=== PATIENT | male | born 1960 | race Caucasian/White ===

== ENCOUNTER 2021-01-16 14:29 | Inpatient (IN) | payer MEDICAID, OTHER ==
[~2021-01-16] VITALS: Ht 177.8 cm; Wt 80.9 kg
[~2021-01-16 14:29] MED LIST: IBUP-1572 PO; LANS30CA37 PO; NORCO10T PO
[2021-01-16 15:16] LABS: EOSINOPHILS # (AUTO) 0.4 X10'3 (0-0.9); LYMPHOCYTES # (AUTO) 2.3 X10'3 (1.1-4.8); MEAN CORPUSCULAR HEMOGLOBIN 27.9 PG (27.0-31.0); MONOCYTES # (AUTO) 0.5 X10'3 (0-0.9)
[2021-01-16 15:17] LABS: BASOPHILS # (AUTO) 0.1 X10'3 (0-0.2); BASOPHILS % (AUTO) 1.6 % (0-1); EOSINOPHILS % (AUTO) 6.1 % (0-6); HEMATOCRIT 46.8 % (42.0-52.0); HEMOGLOBIN 15.5 g/dl (14.0-17.9); LYMPHOCYTES % (AUTO) 38.7 % (21-51); MEAN CORPUSCULAR VOLUME 84.3 FL (78-98); MEAN PLATELET VOLUME 8.2 FL (7.4-10.4); MONOCYTES % (AUTO) 8.6 % (2-12); NEUTROPHILS # (AUTO) 2.6 X10'3 (1.8-7.7); PLATELET COUNT 236 X10'3 (140-440); RED BLOOD COUNT 5.54 X10'6 (4.70-6.10); RED CELL DISTRIBUTION WIDTH 14.1 % (11.5-14.5); WHITE BLOOD COUNT 5.8 X10'3 (4.5-11.0)
[2021-01-16 15:40] LABS: ALANINE AMINOTRANSFERASE 29 U/L (12-78); ALBUMIN 3.9 G/DL (3.4-5.0); ALBUMIN/GLOBULIN RATIO 0.9 (1.1-1.5); ALKALINE PHOSPHATASE 82 IU/L (46-116); ANION GAP 11 (8-16); ASPARTATE AMINO TRANSFERASE 25 U/L (10-37); BILIRUBIN,TOTAL 0.5 MG/DL (0.1-1.0); BLOOD UREA NITROGEN 12 MG/DL (7-18); BUN/CREATININE RATIO 10.6 (5.4-32.0); CALCIUM 8.5 MG/DL (8.5-10.1); CHLORIDE 102 MMOL/L (99-107); CREATININE 1.13 MG/DL (0.60-1.10); GLUCOSE 242 MG/DL (70-104); MAGNESIUM 1.8 MG/DL (1.5-2.4); POTASSIUM 3.9 MMOL/L (3.5-5.1); SODIUM 137 MMOL/L (135-145); TOTAL CARBON DIOXIDE 23.7 MMOL/L (24-32); TOTAL PROTEIN 8.2 G/DL (6.4-8.2); eGFR 66 ML/MIN
[2021-01-16] MEDS ORDERED: aspirin 81mg tab.chew PO ONE (16:05)
[2021-01-16] MEDS ORDERED: normal saline 1000ML IV soln IVB ONE (16:35)
[2021-01-16] MEDS ORDERED: mag hydrox/Alum hydrox/simeth 30ml oral suspension PO PRN (16:55)
[2021-01-16] MEDS ORDERED: heparin 10,000 units/1 ML INJ IV PRN (16:55)
[2021-01-16] MEDS ORDERED: morphine 2 MG/ML inj. syringe IV PRN ×2 (16:55)
[2021-01-16] MEDS ORDERED: magnesium hydroxide 30ml (MOM) UD suspension PO PRN (16:55)
[2021-01-16] MEDS ORDERED: heparin 25,000 UNIT/250ml bag 250 ML IV SCH (16:55)
[2021-01-16] MEDS ORDERED: ondansetron/PF 4mg/2ml inj IV PRN (16:55)
[2021-01-16] MEDS ORDERED: heparin 10,000 units/1 ML INJ IV ONE (16:55)
[2021-01-16 16:56] LABS: D-DIMER 0.42 MG/L FEU (0-0.50)
[2021-01-16 17:45] LABS: PARTIAL THROMBOPLASTIN TIME 25 SECONDS (22-32)
[2021-01-16] MEDS: normal saline 1000ml 1,000 ML IV SCH (17:45)
[2021-01-16 20:28] LABS: URINE AMPHETAMINE SCREEN NEGATIVE (Neg); URINE BARBITUATE SCREEN NEGATIVE (Neg); URINE BENZODIAZEPINES SCREEN NEGATIVE (Neg); URINE CANNABINOID SCREEN NEGATIVE (Neg); URINE COCAINE SCREEN NEGATIVE (Neg); URINE METHADONE SCREEN NEGATIVE (Neg); URINE OPIATE SCREEN NEGATIVE (Neg); URINE PHENCYCLIDINE SCREEN NEGATIVE (Neg)
[2021-01-16] MEDS: carVEDilol 3.125mg tablet PO SCH (20:40)
--- NOTE | 2021-01-16 21:23 | NUR ---
DR. MANJARREZ CALLING ME WITH UPDATE. HE SPOKE WITH THE PT EARLIER AND THE PT IS AGREEABLE TO CARDIAC CATH. VERBAL ORDERS: FILL OUT THE CONSENT FOR CATH WITH POSSIBLE STENT (PT WILL BE ADD ON TOMORROW LIIKELY IN AFTERNOON); NPO AFTER 6 AM 9PT MAY EAT BREAKFAST BEFORE THIS TIME); PLACE PIV 18 G IN RAC. PT UPDATED OF THESE ORDERS.
--- NOTE | 2021-01-16 23:17 | NUR ---
PLACED ON HOSPITAL BED. AWAITING IPA. PIV NOW PLACED IN RAC, 18G.
[2021-01-17] VITALS (12 sets, daily range): BP systolic 84–125; BP diastolic 51–81
[2021-01-17] MEDS: acetaminophen 325mg tablet PO PRN (02:17)
--- NOTE | 2021-01-17 03:25 | NUR ---
6 HR TROP DRAWN, 6 HR EKG COMPLETED
[2021-01-17] MEDS: normal saline 1000ml 1,000 ML IV SCH ×3 (03:29→23:46)
[2021-01-17 04:28] LABS: ALBUMIN 3.4 G/DL (3.4-5.0); ANION GAP 14 (8-16); BLOOD UREA NITROGEN 10 MG/DL (7-18); BUN/CREATININE RATIO 11.4 (5.4-32.0); CALCIUM 8.2 MG/DL (8.5-10.1); CHLORIDE 104 MMOL/L (99-107); CREATININE 0.88 MG/DL (0.60-1.10); GLUCOSE 133 MG/DL (70-104); POTASSIUM 3.5 MMOL/L (3.5-5.1); SODIUM 140 MMOL/L (135-145); TOTAL CARBON DIOXIDE 22.3 MMOL/L (24-32); eGFR 88 ML/MIN
[2021-01-17] MEDS: aspirin 325mg tablet, delayed-release (Ecotrin) PO SCH (08:00)
[2021-01-17] MEDS ORDERED: atorvastatin 20mg tablet PO SCH (08:00)
[2021-01-17] MEDS: carVEDilol 3.125mg tablet PO SCH ×2 (08:00→19:38)
[2021-01-17 08:52] LABS: BASOPHILS # (AUTO) 0.1 X10'3 (0-0.2); BASOPHILS % (AUTO) 1.4 % (0-1); EOSINOPHILS # (AUTO) 0.4 X10'3 (0-0.9); EOSINOPHILS % (AUTO) 5.9 % (0-6); HEMATOCRIT 42.6 % (42.0-52.0); HEMOGLOBIN 14.2 g/dl (14.0-17.9); LYMPHOCYTES # (AUTO) 2.7 X10'3 (1.1-4.8); LYMPHOCYTES % (AUTO) 39.7 % (21-51); MEAN CORPUSCULAR HEMOGLOBIN 28.2 PG (27.0-31.0); MEAN CORPUSCULAR HGB CONC 33.3 g/dL (33.0-36.5); MEAN CORPUSCULAR VOLUME 84.7 FL (78-98); MEAN PLATELET VOLUME 8.3 FL (7.4-10.4); MONOCYTES # (AUTO) 0.5 X10'3 (0-0.9); PLATELET COUNT 198 X10'3 (140-440); RED BLOOD COUNT 5.03 X10'6 (4.70-6.10); RED CELL DISTRIBUTION WIDTH 14.3 % (11.5-14.5); WHITE BLOOD COUNT 6.7 X10'3 (4.5-11.0)
[2021-01-17] MEDS ORDERED: nitroGLYCERIN-Tridil 50MG/D5W 250 ML IV ONE (10:35)
[2021-01-17] MEDS ORDERED: verapamil 2.5 mg/ml inj IV ONE (10:35)
[2021-01-17] MEDS ORDERED: fentaNYL/PF 50MCG/1 ML 2ML syringe ONE (10:36)
[2021-01-17] MEDS ORDERED: heparin 1,000unit/ml 10ml vial 10 ML ONE (10:36)
[2021-01-17] MEDS ORDERED: iohexol 350 MG/ML 50ML vial IV ONE (10:36)
[2021-01-17] MEDS ORDERED: midazolam 1 mg/ML 2ml injection ONE (10:36)
[2021-01-17] MEDS ORDERED: LIDOcaine 1% (10mg/ml)w/preservative injection 20ml MDV ONE (10:36)
[2021-01-17] MEDS ORDERED: iohexol 350MG/ML 100ml bottle IV ONE (10:36)
[2021-01-17 12:04] LABS: CHOL/HDL RATIO 7.1 (0.00-4.99); CHOLESTEROL 240 MG/DL (0-200); HDL CHOLESTEROL 34 MG/DL (35-60); LDL CHOLESTEROL 172 MG/DL (50-100); TRIGLYCERIDES 252 MG/DL (20-135)
[2021-01-17 13:42] LABS: ISTAT HGB ART 14.3 g/dl (14.0-18.0); ISTAT Hct ART 42 %PCV (42-52); ISTAT O2 SATURATION ARTERIAL 95 % (95-98); ISTAT SOURCE ART
--- NOTE | 2021-01-17 13:42 | NUR ---
Per microbiology lab technician - heart cath negative - radial approach - pending patient to room
--- NOTE | 2021-01-17 14:50 | NUR ---
FAXED NEW RX ORDER, ENTRESTO, TO [facility] IN [place] [place].
[2021-01-17] MEDS: sacubitril/valsartan 24mg-26mg tablet PO SCH ×2 (15:35→19:35)
--- NOTE | 2021-01-17 18:30 | NUR ---
Patient in room PCU 3026. I have received report from Maria R RIVAS and had the opportunity to ask questions and assume patient care.
--- NOTE | 2021-01-17 18:35 | NUR ---
Problems reprioritized. Patient report given, questions answered & plan of care reviewed with EVELYN CALVILLO.
--- NOTE | 2021-01-17 18:45 | NUR ---
Orientee documentation: I have reviewed and agree with all interventions, assessments performed and documented by EVELYN Heck.
--- NOTE | 2021-01-17 19:37 | NUR ---
bp 97/65 HR 104 spo2 94% 2l nc
[2021-01-18] MEDS ORDERED: acetaminophen 325mg tablet PO PRN (00:05)
[2021-01-18] MEDS: acetaminophen 325mg tablet PO PRN (00:23)
[2021-01-18 03:28] VITALS: BP 105/57
[2021-01-18 06:00] VITALS: BP 95/62
--- NOTE | 2021-01-18 06:00 | NUR ---
Patient in room PCU 3026. I have received report from Tara RIVAS and had the opportunity to ask questions and assume patient care.
--- NOTE | 2021-01-18 06:19 | NUR ---
Problems reprioritized. Patient report given, questions answered & plan of care reviewed with Silvio RIVAS.
[2021-01-18] MEDS ORDERED: atorvastatin 20mg tablet PO SCH (08:00)
[2021-01-18] MEDS ORDERED: lansoprazole 15mg solutab PO SCH (08:00)
[2021-01-18] MEDS: aspirin 325mg tablet, delayed-release (Ecotrin) PO SCH (08:00)
[2021-01-18] MEDS: sacubitril/valsartan 24mg-26mg tablet PO SCH (08:00)
[2021-01-18] MEDS ORDERED: spironolactone 25 MG tablet PO SCH (08:30)
[2021-01-18] MEDS ORDERED: aspirin 81mg tab.chew PO SCH (08:30)
[2021-01-18 08:34] LABS: BASOPHILS # (AUTO) 0.1 X10'3 (0-0.2); BASOPHILS % (AUTO) 1.7 % (0-1); EOSINOPHILS # (AUTO) 0.3 X10'3 (0-0.9); EOSINOPHILS % (AUTO) 5.9 % (0-6); HEMOGLOBIN 13.9 g/dl (14.0-17.9); LYMPHOCYTES # (AUTO) 2.1 X10'3 (1.1-4.8); LYMPHOCYTES % (AUTO) 38.5 % (21-51); MEAN CORPUSCULAR HEMOGLOBIN 27.6 PG (27.0-31.0); MEAN CORPUSCULAR HGB CONC 33.3 g/dL (33.0-36.5); MEAN CORPUSCULAR VOLUME 83.1 FL (78-98); MEAN PLATELET VOLUME 8.4 FL (7.4-10.4); MONOCYTES # (AUTO) 0.5 X10'3 (0-0.9); MONOCYTES % (AUTO) 10.2 % (2-12); NEUTROPHILS # (AUTO) 2.4 X10'3 (1.8-7.7); NEUTROPHILS % (AUTO) 43.7 % (42-75); PLATELET COUNT 184 X10'3 (140-440); RED BLOOD COUNT 5.05 X10'6 (4.70-6.10); RED CELL DISTRIBUTION WIDTH 14.5 % (11.5-14.5); WHITE BLOOD COUNT 5.4 X10'3 (4.5-11.0)
[2021-01-18] MEDS: normal saline 1000ml 1,000 ML IV SCH (08:55)
[2021-01-18 09:18] LABS: ALBUMIN 3.3 G/DL (3.4-5.0); ANION GAP 14 (8-16); BLOOD UREA NITROGEN 9 MG/DL (7-18); BUN/CREATININE RATIO 10.2 (5.4-32.0); CALCIUM 7.7 MG/DL (8.5-10.1); CHLORIDE 106 MMOL/L (99-107); CREATININE 0.88 MG/DL (0.60-1.10); GLUCOSE 125 MG/DL (70-104); POTASSIUM 3.4 MMOL/L (3.5-5.1); SODIUM 142 MMOL/L (135-145); TOTAL CARBON DIOXIDE 22.4 MMOL/L (24-32); eGFR 88 ML/MIN
[2021-01-18 09:45] VITALS: BP 89/60
[2021-01-18] MEDS ORDERED: pneumococcal 23-VAL P-sac vacc 25 mcg/0.5ml vial IMVAC ONE (10:00)
--- NOTE | 2021-01-18 10:00 | NUR ---
Spoke with Nirali Gayle [employer], concerning Pt's BP and AM BP meds. Instructed to give morning Coreg 3.125 and Aldactone 25mg and hold entresto. Will continue to check Pt's BP as needed.
[2021-01-18] MEDS: carVEDilol 3.125mg tablet PO SCH (10:07)
[2021-01-18] MEDS ORDERED: magnesium Cl slow-release 64mg tablet PO PRN (10:25)
[2021-01-18] MEDS ORDERED: magnesium 4gm in 100ml NS 100 ML IV PRN (10:25)
[2021-01-18] MEDS ORDERED: potassium Cl 20 mEq SR tablet PO PRN ×2 (10:25)
--- NOTE | 2021-01-18 10:26 | NUR ---
Pt ambulated 4 laps around nurses station on RA with no assistive devices. Pt did not complain of any SOB or pain.
--- NOTE | 2021-01-18 10:30 | NUR ---
Received Pt report from Theresa RIVAS in ED. Had opportunity to ask questions concerning Pt care and plan. Awaiting arrival of Pt to room 301. Addendum: 01/18/21 at 1110 by Silvio Payne RN wrong Pt.
[2021-01-18 11:00] VITALS: BP 90/65
--- NOTE | 2021-01-18 11:16 | NUR ---
PAGER ID: [phone] MESSAGE: Re: Flip ayala. Room: 3026A. DC order is in but discharge is not completely filled out. Pt being picked up at 1200. -[facility] #[id number] -Dr. Larsen paged concerning Pt's DC
[2021-01-18] MEDS ORDERED: ASPI81TA53 PO (11:31)
[2021-01-18] MEDS ORDERED: SPIR25TA PO (11:31)
[2021-01-18] MEDS ORDERED: COR3.125T PO (11:31)
[2021-01-18] MEDS ORDERED: ATOR20TA66 PO (11:31)
[2021-01-18] MEDS ORDERED: SACU1TAB PO (11:31)
--- NOTE | 2021-01-18 12:37 | NUR ---
Pt DC'd home with sister. Pt alert and oriented and vitals WNL upon DC. Per Dr. Larsen; Pt is stable for DC. IV removed, canula intact. tele-box removed and returned to tele-tech. DC paperwork printed out and gone over with Pt. Allowed Pt to ask questions concerning DC and then answered them. New prescriptions called into [facility] in [facility]. Pt stated that he will make a follow up appt with his PCP and Dr. Ramirez within 2 weeks time. Pt's belongings gathered and sent with Pt. Pt wheeled down to [employer] in wheel chair where Pt left in private vehicle with sister for home.
[2021-01-18] MEDS ORDERED: K and/or MAG REPLACEMENT MC SCH (20:00)
[2021-01-19] MEDS ORDERED: GLYB2.5T4 PO (11:38)
== END 2021-01-18 12:37 | disposition home or self-care (01) | DRG 190 ==
LOC: ER 14:29 → ED HOLD 16:54 → PCU 3S 01-17 09:28
PROVIDERS: ADMIT Family Medicine; ATTEND Family Medicine
PROC: 4A023N8 Measurement of Cardiac Sampling and Pressure, Bilateral, Percutaneous Approach (ICD-10-PCS; principal; 2021-01-17)
PROC: B2111ZZ Fluoroscopy of Multiple Coronary Arteries using Low Osmolar Contrast (ICD-10-PCS; 2021-01-17)
PROC: B2151ZZ Fluoroscopy of Left Heart using Low Osmolar Contrast (ICD-10-PCS; 2021-01-17)
PROC: B44FZZZ Ultrasonography of Right Lower Extremity Arteries (ICD-10-PCS; 2021-01-17)
PROC: 3E0234Z Introduction of Serum, Toxoid and Vaccine into Muscle, Percutaneous Approach (ICD-10-PCS; 2021-01-18)
DX: I21.4 Non-ST elevation (NSTEMI) myocardial infarction (principal); I50.23 Acute on chronic systolic (congestive) heart failure; E11.65 Type 2 diabetes mellitus with hyperglycemia; I42.9 Cardiomyopathy, unspecified; I11.0 Hypertensive heart disease with heart failure; I25.10 Atherosclerotic heart disease of native coronary artery without angina pectoris; K21.9 Gastro-esophageal reflux disease without esophagitis; Z79.899 Other long term (current) drug therapy; Z80.9 Family history of malignant neoplasm, unspecified; Z87.891 Personal history of nicotine dependence; Z93.3 Colostomy status; Z23 Encounter for immunization
CPT/HCPCS: 36415; 71045; 80048; 80053; 80061; 80305; 82803; 82948; 83036; 83735; 83880; 84484; 85014; 85025; 85379; 85610; 85730; 87081; 90732; 93005; 93306; 93460; 99152; 99153; 99285; A4620; A5120; A6258; C1751; C1769; C1894; G0378; J1644; J2001; J2250; J3010; J3490; J7030; Q9967

== ENCOUNTER 2024-02-19 15:22 | Emergency (ER) | payer MEDICAID ==
[~2024-02-19] VITALS: Ht 175.3 cm; Wt 81.8 kg
[~2024-02-19 15:22] MED LIST changes: +ASPI81TA53 PO; +ATOR20TA66 PO; +COR3.125T PO; +GLYB2.5T4 PO; -IBUP-1572 PO; -NORCO10T PO; +SACU1TAB PO; +SPIR25TA PO
[2024-02-19 16:29] VITALS: BP 143/82; PULSE 70; RESP 18; TEMP 98.7; O2SAT 97
== END 2024-02-19 16:31 | disposition home or self-care (01) ==
LOC: ER 15:22
DX: T16.1XXA Foreign body in right ear, initial encounter (principal); K21.9 Gastro-esophageal reflux disease without esophagitis; F12.90 Cannabis use, unspecified, uncomplicated; Z88.0 Allergy status to penicillin; Z88.2 Allergy status to sulfonamides; Z79.82 Long term (current) use of aspirin; Z79.899 Other long term (current) drug therapy; W44.G1XA Audio device entering into or through a natural orifice, initial encounter; Y93.89 Activity, other specified; Y92.89 Other specified places as the place of occurrence of the external cause; Y99.8 Other external cause status
CPT/HCPCS: 69200; 99284

== ENCOUNTER 2024-08-02 09:01 | Emergency (ER) | payer MEDICAID, MEDICARE ==
[~2024-08-02] VITALS: Ht 177.8 cm; Wt 57.9 kg
[~2024-08-02 09:01] MED LIST changes: +CARV3.1232 PO; -COR3.125T PO
[2024-08-02 09:43] LABS: ALANINE AMINOTRANSFERASE 15 U/L (12-78); ALBUMIN 3.8 G/DL (3.4-5.0); ALBUMIN/GLOBULIN RATIO 0.9 (1.1-1.5); ALKALINE PHOSPHATASE 98 IU/L (46-116); ANION GAP 13 (8-16); ASPARTATE AMINO TRANSFERASE 27 U/L (10-37); BILIRUBIN,TOTAL 0.9 MG/DL (0.1-1.0); BLOOD UREA NITROGEN 19 MG/DL (7-18); BUN/CREATININE RATIO 14.5 (10.0-20.0); CALCIUM 8.5 MG/DL (8.5-10.1); CHLORIDE 101 MMOL/L (99-107); CREATININE 1.31 MG/DL (0.60-1.10); GLUCOSE 163 MG/DL (70-104); POTASSIUM 3.9 MMOL/L (3.5-5.1); PRO BRAIN NATRIURETIC PEPTIDE 7215 PG/ML (0-125); SODIUM 136 MMOL/L (135-145); TOTAL CARBON DIOXIDE 22.4 MMOL/L (24-32); TOTAL PROTEIN 8.1 G/DL (6.4-8.2); eCRCL 46 ML/MIN; eGFR 55 ML/MIN
[2024-08-02 09:45] LABS: BASOPHILS # (AUTO) 0.1 X10'3 (0-0.2); BASOPHILS % (AUTO) 2.3 % (0-1); EOSINOPHILS # (AUTO) 0.1 X10'3 (0-0.9); EOSINOPHILS % (AUTO) 2.6 % (0-6); HEMATOCRIT 43.9 % (42.0-52.0); LYMPHOCYTES # (AUTO) 1.9 X10'3 (1.1-4.8); LYMPHOCYTES % (AUTO) 35.9 % (21-51); MEAN CORPUSCULAR HEMOGLOBIN 25.7 PG (27.0-31.0); MEAN CORPUSCULAR HGB CONC 31.8 g/dL (33.0-36.5); MEAN CORPUSCULAR VOLUME 80.7 FL (78-98); MEAN PLATELET VOLUME 9.2 FL (7.4-10.4); MONOCYTES # (AUTO) 0.4 X10'3 (0-0.9); MONOCYTES % (AUTO) 8.2 % (2-12); NEUTROPHILS # (AUTO) 2.7 X10'3 (1.8-7.7); PLATELET COUNT 189 X10'3 (140-440); RED BLOOD COUNT 5.44 X10'6 (4.70-6.10); RED CELL DISTRIBUTION WIDTH 15.6 % (11.5-14.5); WHITE BLOOD COUNT 5.4 X10'3 (4.5-11.0)
[2024-08-02] MEDS: mag hydrox/Alum hydrox/simeth 30ml oral suspension PO ONE (10:54)
[2024-08-02] MEDS: LIDOcaine 2% Viscous 15ml cup MM ONE (10:57)
[2024-08-02] MEDS ORDERED: PANT40SU2 PO (11:16)
[2024-08-02 11:51] VITALS: BP 119/96; PULSE 75; RESP 16; TEMP 98.6; O2SAT 98
== END 2024-08-02 11:52 | disposition home or self-care (01) ==
LOC: ER 09:01
DX: K21.9 Gastro-esophageal reflux disease without esophagitis (principal); F12.90 Cannabis use, unspecified, uncomplicated; I50.9 Heart failure, unspecified; Z88.0 Allergy status to penicillin; Z88.2 Allergy status to sulfonamides; Z79.82 Long term (current) use of aspirin; Z79.899 Other long term (current) drug therapy
CPT/HCPCS: 36415; 71045; 80053; 83880; 84484; 85025; 93005; 99285; J7030

== ENCOUNTER 2024-08-04 05:53 | Emergency (ER) | payer MEDICARE ==
[~2024-08-04] VITALS: Ht 177.8 cm; Wt 80.4 kg
[~2024-08-04 05:53] MED LIST changes: +PANT40SU2 PO
[2024-08-04 06:15] VITALS: BP 118/81; PULSE 108; RESP 16; TEMP 98.1; O2SAT 99
[2024-08-04 07:57] LABS: BASOPHILS # (AUTO) 0.1 X10'3 (0-0.2); BASOPHILS % (AUTO) 1.7 % (0-1); EOSINOPHILS # (AUTO) 0.1 X10'3 (0-0.9); EOSINOPHILS % (AUTO) 1.9 % (0-6); HEMATOCRIT 41.7 % (42.0-52.0); HEMOGLOBIN 13.4 g/dl (14.0-17.9); LYMPHOCYTES # (AUTO) 1.4 X10'3 (1.1-4.8); LYMPHOCYTES % (AUTO) 25.5 % (21-51); MEAN CORPUSCULAR HEMOGLOBIN 25.9 PG (27.0-31.0); MEAN CORPUSCULAR HGB CONC 32.2 g/dL (33.0-36.5); MEAN CORPUSCULAR VOLUME 80.4 FL (78-98); MEAN PLATELET VOLUME 9.1 FL (7.4-10.4); MONOCYTES # (AUTO) 0.5 X10'3 (0-0.9); MONOCYTES % (AUTO) 9.7 % (2-12); NEUTROPHILS # (AUTO) 3.4 X10'3 (1.8-7.7); NEUTROPHILS % (AUTO) 61.2 % (42-75); PLATELET COUNT 172 X10'3 (140-440); RED BLOOD COUNT 5.18 X10'6 (4.70-6.10); RED CELL DISTRIBUTION WIDTH 15.7 % (11.5-14.5); WHITE BLOOD COUNT 5.5 X10'3 (4.5-11.0)
[2024-08-04 08:32] LABS: ALANINE AMINOTRANSFERASE 16 U/L (12-78); ALBUMIN 3.9 G/DL (3.4-5.0); ALKALINE PHOSPHATASE 92 IU/L (46-116); ANION GAP 11 (8-16); ASPARTATE AMINO TRANSFERASE 27 U/L (10-37); BILIRUBIN,TOTAL 0.7 MG/DL (0.1-1.0); BLOOD UREA NITROGEN 32 MG/DL (7-18); CALCIUM 8.7 MG/DL (8.5-10.1); CHLORIDE 100 MMOL/L (99-107); CREATININE 1.78 MG/DL (0.60-1.10); GLUCOSE 124 MG/DL (70-104); LIPASE 37 U/L (16-77); POTASSIUM 4.6 MMOL/L (3.5-5.1); SODIUM 134 MMOL/L (135-145); TOTAL CARBON DIOXIDE 23.1 MMOL/L (24-32); TOTAL PROTEIN 7.8 G/DL (6.4-8.2); eCRCL 43 ML/MIN; eGFR 39 ML/MIN
[2024-08-05] MEDS ORDERED: CARV3.1232 PO (20:42)
[2024-08-05] MEDS ORDERED: SPIR25TA PO (20:42)
[2024-08-05] MEDS ORDERED: SACU1TAB PO (20:42)
[2024-08-05] MEDS ORDERED: ATOR20TA66 PO (20:42)
[2024-08-05] MEDS ORDERED: GLYB2.5T4 PO (20:42)
[2024-08-05] MEDS ORDERED: ASPI81TA53 PO (20:42)
== END 2024-08-04 08:28 | disposition left against medical advice (07) ==
LOC: ER 05:53
DX: R10.9 Unspecified abdominal pain (principal); Z88.0 Allergy status to penicillin; Z88.2 Allergy status to sulfonamides; Z53.21 Procedure and treatment not carried out due to patient leaving prior to being seen by health care provider
CPT/HCPCS: 36415; 80053; 83605; 83690; 84484; 85025; 93005

== ENCOUNTER 2024-08-05 14:53 | Emergency (ER) | payer MEDICARE ==
[~2024-08-05] VITALS: Ht 177.8 cm; Wt 70.5 kg
[2024-08-05 16:56] LABS: BASOPHILS # (AUTO) 0.1 X10'3 (0-0.2); EOSINOPHILS # (AUTO) 0.1 X10'3 (0-0.9); HEMOGLOBIN 13.9 g/dl (14.0-17.9); LYMPHOCYTES # (AUTO) 1.3 X10'3 (1.1-4.8); MEAN CORPUSCULAR VOLUME 80.5 FL (78-98); MONOCYTES # (AUTO) 0.4 X10'3 (0-0.9); NEUTROPHILS % (AUTO) 60.5 % (42-75); PLATELET COUNT 172 X10'3 (140-440); RED CELL DISTRIBUTION WIDTH 15.9 % (11.5-14.5)
[2024-08-05 16:58] LABS: BASOPHILS % (AUTO) 1.8 % (0-1); EOSINOPHILS % (AUTO) 2.3 % (0-6); HEMATOCRIT 43.1 % (42.0-52.0); MEAN CORPUSCULAR HGB CONC 32.3 g/dL (33.0-36.5); MEAN PLATELET VOLUME 9.5 FL (7.4-10.4); MONOCYTES % (AUTO) 8.4 % (2-12); RED BLOOD COUNT 5.35 X10'6 (4.70-6.10); WHITE BLOOD COUNT 4.9 X10'3 (4.5-11.0)
[2024-08-05 17:03] LABS: ALANINE AMINOTRANSFERASE 22 U/L (12-78); ALBUMIN 4.1 G/DL (3.4-5.0); ALBUMIN/GLOBULIN RATIO 1.1 (1.1-1.5); ALKALINE PHOSPHATASE 101 IU/L (46-116); ANION GAP 9 (8-16); ASPARTATE AMINO TRANSFERASE 28 U/L (10-37); BILIRUBIN,TOTAL 0.8 MG/DL (0.1-1.0); BLOOD UREA NITROGEN 36 MG/DL (7-18); BUN/CREATININE RATIO 25.5 (10.0-20.0); CHLORIDE 102 MMOL/L (99-107); CREATININE 1.41 MG/DL (0.60-1.10); GLUCOSE 126 MG/DL (70-104); POTASSIUM 4.7 MMOL/L (3.5-5.1); SODIUM 137 MMOL/L (135-145); TOTAL CARBON DIOXIDE 25.7 MMOL/L (24-32); TOTAL PROTEIN 7.8 G/DL (6.4-8.2); eCRCL 52 ML/MIN; eGFR 50 ML/MIN
[2024-08-05 17:14] LABS: PRO BRAIN NATRIURETIC PEPTIDE 8279 PG/ML (0-125); THYROID STIMULATING HORMONE 6.94 ulU/ml (0.34-4.50)
[2024-08-05 17:29] LABS: APTT 27 SECONDS (22-32); INR 1.2 INR; PROTHROMBIN TIME 12.3 SECONDS (9.0-12.0)
[2024-08-05] MEDS: normal saline 1000ML IV soln IVB ONE (19:00)
[2024-08-05 19:47] LABS: BILIRUBIN,URINE NEGATIVE (Neg); CLARITY,URINE CLEAR (Clear); COLOR,URINE YELLOW (Yellow); GLUCOSE, URINE NEGATIVE (Neg); KETONES,URINE NEGATIVE (Neg); LEUKOCYTE ESTERASE ,URINE NEGATIVE (Neg); NITRITES, URINE NEGATIVE (Neg); OCCULT BLOOD,URINE NEGATIVE (Neg); PROTEIN,URINE TRACE mg/dl (Neg); UROBILINOGEN,URINE 0.2 E.U/dL (0.2-1.0)
[2024-08-05 19:58] VITALS: TEMP 97.7
[2024-08-05 19:58] LABS: UA COLLECTION TYPE CLN CATCH MIDSTREAM
[2024-08-05 19:59] LABS: MUCUS STRANDS MODERATE /LPF (Neg); RBC,URINE 0-2 /HPF (0-2); SQUAMOUS EPITHELIAL CELL,UR NONE SEEN /LPF (FEW); WBC,URINE 0-4 /HPF (0-4)
[2024-08-05 20:00] LABS: BACTERIA,URINE 1+ /HPF (Neg)
[2024-08-05 20:38] VITALS: BP 110/77; PULSE 94; RESP 20; O2SAT 98
[2024-08-05] MEDS ORDERED: SPIR25TA PO (20:42)
[2024-08-05] MEDS ORDERED: GLYB2.5T4 PO (20:42)
[2024-08-05] MEDS ORDERED: ASPI81TA53 PO (20:42)
[2024-08-05] MEDS ORDERED: ATOR20TA66 PO (20:42)
[2024-08-05] MEDS ORDERED: SACU1TAB PO (20:42)
[2024-08-05] MEDS ORDERED: CARV3.1232 PO (20:42)
== END 2024-08-05 20:50 | disposition home or self-care (01) ==
LOC: ER 14:54
DX: R53.1 Weakness (principal); E86.0 Dehydration; I50.9 Heart failure, unspecified; F12.90 Cannabis use, unspecified, uncomplicated; K21.9 Gastro-esophageal reflux disease without esophagitis; Z88.0 Allergy status to penicillin; Z88.2 Allergy status to sulfonamides; Z20.822 Contact with and (suspected) exposure to COVID-19; Z79.82 Long term (current) use of aspirin
CPT/HCPCS: 36415; 71045; 80053; 81001; 83880; 84145; 84439; 84443; 84484; 85025; 85610; 85730; 87502; 87503; 87811; 93005; 99285; J7030; J7040

== ENCOUNTER 2024-08-26 13:59 | Inpatient (IN) | payer MEDICARE ==
[~2024-08-26] VITALS: Ht 177.8 cm; Wt 80.9 kg
[~2024-08-26 13:59] MED LIST changes: +ATOR-2 PO; -ATOR20TA66 PO; -CARV3.1232 PO; +CARV3.1244 PO; +FURO20TA4 PO; -LANS30CA37 PO; -PANT40SU2 PO; -SPIR25TA PO; +SPIR25TA5 PO
[2024-08-26 15:40] LABS: BASOPHILS # (AUTO) 0.1 X10'3 (0-0.2); MEAN PLATELET VOLUME 9.5 FL (7.4-10.4); MONOCYTES # (AUTO) 0.5 X10'3 (0-0.9); RED BLOOD COUNT 5.22 X10'6 (4.70-6.10)
[2024-08-26 15:44] LABS: BASOPHILS % (AUTO) 2.6 % (0-1); EOSINOPHILS # (AUTO) 0.1 X10'3 (0-0.9); EOSINOPHILS % (AUTO) 3.1 % (0-6); HEMATOCRIT 41.5 % (42.0-52.0); HEMOGLOBIN 13.2 g/dl (14.0-17.9); MEAN CORPUSCULAR HEMOGLOBIN 25.3 PG (27.0-31.0); MEAN CORPUSCULAR HGB CONC 31.8 g/dL (33.0-36.5); MEAN CORPUSCULAR VOLUME 79.5 FL (78-98); MONOCYTES % (AUTO) 10.4 % (2-12); NEUTROPHILS % (AUTO) 63.9 % (42-75); PLATELET COUNT 142 X10'3 (140-440); RED CELL DISTRIBUTION WIDTH 16.9 % (11.5-14.5); WHITE BLOOD COUNT 4.7 X10'3 (4.5-11.0)
[2024-08-26 16:00] LABS: ALANINE AMINOTRANSFERASE 23 U/L (12-78); ALBUMIN 3.7 G/DL (3.4-5.0); ALKALINE PHOSPHATASE 131 IU/L (46-116); ANION GAP 7 (8-16); ASPARTATE AMINO TRANSFERASE 27 U/L (10-37); BILIRUBIN,TOTAL 0.8 MG/DL (0.1-1.0); BLOOD UREA NITROGEN 21 MG/DL (7-18); BUN/CREATININE RATIO 18.3 (10.0-20.0); CALCIUM 8.7 MG/DL (8.5-10.1); CHLORIDE 104 MMOL/L (99-107); CREATININE 1.15 MG/DL (0.60-1.10); GLUCOSE 104 MG/DL (70-104); PRO BRAIN NATRIURETIC PEPTIDE 8761 PG/ML (0-125); SODIUM 139 MMOL/L (135-145); TOTAL CARBON DIOXIDE 27.6 MMOL/L (24-32); TOTAL PROTEIN 7.3 G/DL (6.4-8.2); eCRCL 66 ML/MIN; eGFR 64 ML/MIN
[2024-08-26] MEDS ORDERED: furosemide 10 MG/1 ML 10ml inj IV ONE (17:15)
[2024-08-26] MEDS: furosemide 40mg/4ml inj IV ONE (17:22)
[2024-08-26] MEDS ORDERED: FAMO20TA8 PO (17:32)
[2024-08-26] MEDS ORDERED: HYDROcodone/acetaminophen 5mg/325mg tablet PO PRN (19:55)
[2024-08-26] MEDS ORDERED: acetaminophen 325mg tablet PO PRN ×2 (19:55)
[2024-08-26] MEDS ORDERED: magnesium Cl slow-release 64mg tablet PO PRN (19:55)
[2024-08-26] MEDS ORDERED: magnesium sulf-water 4G/100mL 100 ML IV PRN (19:55)
[2024-08-26] MEDS ORDERED: potassium Cl 20 mEq SR tablet PO PRN ×2 (19:55)
[2024-08-26] MEDS ORDERED: ondansetron/PF 4mg/2ml inj IV PRN (19:55)
[2024-08-26] MEDS ORDERED: magnesium sulf-water 2g/50mL 50 ML IV PRN (19:55)
[2024-08-26] MEDS ORDERED: potassium Cl 40MEQ/1/2NS 520ml 520 ML IV PRN (19:55)
[2024-08-26] MEDS: carVEDilol 3.125mg tablet PO SCH (21:12)
[2024-08-26] MEDS: sacubitril/valsartan 24mg-26mg tablet PO SCH (21:12)
[2024-08-26] MEDS: heparin, porcine 5000 units/ml vial SQ SCH (21:13)
[2024-08-26 23:40] VITALS: BP 104/76; PULSE 90; RESP 16; TEMP 97.2; O2SAT 98
[2024-08-27] VITALS (8 sets, daily range): BP systolic 87–104; BP diastolic 57–74; PULSE 85–98; RESP 16–20; TEMP 97.3–98.2; O2SAT 93–99
[2024-08-27 06:36] LABS: BASOPHILS # (AUTO) 0.1 X10'3 (0-0.2); BASOPHILS % (AUTO) 1.9 % (0-1); EOSINOPHILS # (AUTO) 0.2 X10'3 (0-0.9); EOSINOPHILS % (AUTO) 6.2 % (0-6); HEMATOCRIT 38.8 % (42.0-52.0); HEMOGLOBIN 12.5 g/dl (14.0-17.9); LYMPHOCYTES # (AUTO) 0.8 X10'3 (1.1-4.8); LYMPHOCYTES % (AUTO) 21.9 % (21-51); MEAN CORPUSCULAR HEMOGLOBIN 25.3 PG (27.0-31.0); MEAN CORPUSCULAR HGB CONC 32.2 g/dL (33.0-36.5); MEAN CORPUSCULAR VOLUME 78.6 FL (78-98); MEAN PLATELET VOLUME 9.3 FL (7.4-10.4); MONOCYTES # (AUTO) 0.4 X10'3 (0-0.9); MONOCYTES % (AUTO) 11.4 % (2-12); NEUTROPHILS # (AUTO) 2.1 X10'3 (1.8-7.7); NEUTROPHILS % (AUTO) 58.6 % (42-75); PLATELET COUNT 122 X10'3 (140-440); RED BLOOD COUNT 4.94 X10'6 (4.70-6.10); RED CELL DISTRIBUTION WIDTH 16.3 % (11.5-14.5); WHITE BLOOD COUNT 3.5 X10'3 (4.5-11.0)
[2024-08-27 07:04] LABS: ALANINE AMINOTRANSFERASE 20 U/L (12-78); ALBUMIN 3.4 G/DL (3.4-5.0); ALKALINE PHOSPHATASE 111 IU/L (46-116); ANION GAP 9 (8-16); ASPARTATE AMINO TRANSFERASE 25 U/L (10-37); BILIRUBIN,TOTAL 0.8 MG/DL (0.1-1.0); BLOOD UREA NITROGEN 21 MG/DL (7-18); BUN/CREATININE RATIO 19.1 (10.0-20.0); CALCIUM 8.6 MG/DL (8.5-10.1); CHLORIDE 104 MMOL/L (99-107); GLUCOSE 104 MG/DL (70-104); POTASSIUM 3.5 MMOL/L (3.5-5.1); SODIUM 141 MMOL/L (135-145); TOTAL CARBON DIOXIDE 27.7 MMOL/L (24-32); TOTAL PROTEIN 6.8 G/DL (6.4-8.2); eCRCL 69 ML/MIN; eGFR 67 ML/MIN
[2024-08-27] MEDS: aspirin 81mg tab.chew PO SCH (07:43)
[2024-08-27] MEDS: atorvastatin 20mg tablet PO SCH (07:44)
[2024-08-27] MEDS ORDERED: furosemide 20 MG/2 ML vial IV SCH (08:00)
[2024-08-27] MEDS: spironolactone 25 MG tablet PO SCH (08:00)
[2024-08-27] MEDS ORDERED: iohexol 300mg/ml 100ml inj. ONE (11:52)
[2024-08-27] MEDS: furosemide 20 MG/2 ML vial IV SCH (19:45)
[2024-08-27] MEDS: sacubitril/valsartan 24mg-26mg tablet PO ONE (23:07)
[2024-08-28 02:13] VITALS: BP 96/55; PULSE 90; RESP 18; TEMP 98.3; O2SAT 94
[2024-08-28] MEDS: morphine 2 MG/ML inj. syringe IV ONE (03:01)
[2024-08-28 06:45] LABS: BASOPHILS # (AUTO) 0.1 X10'3 (0-0.2); BASOPHILS % (AUTO) 2.3 % (0-1); EOSINOPHILS # (AUTO) 0.2 X10'3 (0-0.9); EOSINOPHILS % (AUTO) 6.7 % (0-6); HEMATOCRIT 39.4 % (42.0-52.0); HEMOGLOBIN 12.8 g/dl (14.0-17.9); LYMPHOCYTES # (AUTO) 1.1 X10'3 (1.1-4.8); LYMPHOCYTES % (AUTO) 31.9 % (21-51); MEAN CORPUSCULAR HEMOGLOBIN 25.4 PG (27.0-31.0); MEAN CORPUSCULAR HGB CONC 32.4 g/dL (33.0-36.5); MEAN CORPUSCULAR VOLUME 78.3 FL (78-98); MEAN PLATELET VOLUME 9.3 FL (7.4-10.4); MONOCYTES # (AUTO) 0.4 X10'3 (0-0.9); NEUTROPHILS # (AUTO) 1.6 X10'3 (1.8-7.7); NEUTROPHILS % (AUTO) 48.1 % (42-75); PLATELET COUNT 128 X10'3 (140-440); RED BLOOD COUNT 5.03 X10'6 (4.70-6.10); RED CELL DISTRIBUTION WIDTH 16.9 % (11.5-14.5); WHITE BLOOD COUNT 3.4 X10'3 (4.5-11.0)
[2024-08-28 07:00] VITALS: BP 104/72; PULSE 80; RESP 20; TEMP 98.6; O2SAT 98
[2024-08-28 07:10] LABS: ALBUMIN 3.4 G/DL (3.4-5.0); ANION GAP 10 (8-16); BILIRUBIN,TOTAL 0.9 MG/DL (0.1-1.0); BLOOD UREA NITROGEN 21 MG/DL (7-18); BUN/CREATININE RATIO 20.8 (10.0-20.0); CALCIUM 8.9 MG/DL (8.5-10.1); CHLORIDE 104 MMOL/L (99-107); CREATININE 1.01 MG/DL (0.60-1.10); GLUCOSE 77 MG/DL (70-104); POTASSIUM 3.4 MMOL/L (3.5-5.1); SODIUM 141 MMOL/L (135-145); TOTAL CARBON DIOXIDE 27.4 MMOL/L (24-32); TOTAL PROTEIN 6.8 G/DL (6.4-8.2); eCRCL 75 ML/MIN; eGFR 74 ML/MIN
[2024-08-28 07:11] LABS: ALANINE AMINOTRANSFERASE 20 U/L (12-78); ALKALINE PHOSPHATASE 112 IU/L (46-116); ASPARTATE AMINO TRANSFERASE 28 U/L (10-37)
[2024-08-28 07:22] VITALS: BP_SYST 104; PULSE 85
[2024-08-28 08:00] VITALS: RESP 20; O2SAT 98
[2024-08-28] MEDS ORDERED: FURO20TA4 PO (09:57)
[2024-08-28] MEDS ORDERED: EMPA10TA PO (09:57)
== END 2024-08-28 10:24 | disposition home or self-care (01) | DRG 291 ==
LOC: ER 14:00 → UNDOADMIN 17:42 → ED HOLD 17:42 → PCU 3S 23:15 → ED HOLD 23:15 → UNDODISIN 08-28 10:24
PROVIDERS: ADMIT Internal Medicine; ATTEND Internal Medicine
PROC: BW241ZZ Computerized Tomography (CT Scan) of Chest and Abdomen using Low Osmolar Contrast (ICD-10-PCS; principal; 2024-08-27)
DX: I50.23 Acute on chronic systolic (congestive) heart failure (principal); J18.8 Other pneumonia, unspecified organism; N17.9 Acute kidney failure, unspecified; I42.9 Cardiomyopathy, unspecified; R18.8 Other ascites; J47.0 Bronchiectasis with acute lower respiratory infection; R91.1 Solitary pulmonary nodule; K21.9 Gastro-esophageal reflux disease without esophagitis; K80.20 Calculus of gallbladder without cholecystitis without obstruction; I87.8 Other specified disorders of veins; J40 Bronchitis, not specified as acute or chronic; E11.9 Type 2 diabetes mellitus without complications; K74.60 Unspecified cirrhosis of liver; Z79.899 Other long term (current) drug therapy; Z88.0 Allergy status to penicillin; Z87.891 Personal history of nicotine dependence; Z79.82 Long term (current) use of aspirin
CPT/HCPCS: 36415; 71045; 71260; 80053; 82948; 83880; 84145; 84484; 85025; 87081; 93005; 99285; A4615; G0378; J1644; J1940; J2270; Q9967

== ENCOUNTER 2025-03-01 14:55 | Emergency (ER) | payer MEDICARE, MEDICAID ==
[~2025-03-01] VITALS: Ht 177.8 cm; Wt 78.1 kg
[~2025-03-01 14:55] MED LIST changes: +EMPA10TA PO; +FERR-116 PO; -FURO20TA4 PO
--- NOTE | 2025-03-01 15:14 | ELECTROCARDIOGRAPH REPORT ---
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
[2025-03-01 15:27] LABS: MEAN PLATELET VOLUME 8.6 FL (7.4-10.4); RED CELL DISTRIBUTION WIDTH 14.0 % (11.5-14.5)
--- NOTE | 2025-03-01 15:36 | RADIOLOGY REPORT ---
EXAM: DI CHEST,SINGLE VIEW HISTORY: CP TECHNIQUE: 1 view of the chest COMPARISON: DI CHEST,SINGLE VIEW on DOS: 01/28/25 FINDINGS/IMPRESSION: LUNGS: No pleural effusion, consolidation, or pneumothorax MEDIASTINUM: Unremarkable BONES: No acute osseous abnormality OTHER: None
[2025-03-01 15:51] LABS: CREATININE 1.76 MG/DL (0.60-1.10); PRO BRAIN NATRIURETIC PEPTIDE 671 PG/ML (0-125); TOTAL CARBON DIOXIDE 28.2 MMOL/L (24-32); eCRCL 43 ML/MIN; eGFR 39 ML/MIN
--- NOTE | 2025-03-01 16:05 | Physician Documentation ---
History of Present Illness ~ Chief Complaint: Chest Pain Stated Complaint: LOW BLOOD PRESSURE WEAKNESS Time Seen by MD: 16:03 Primary Medical Doctor: [facility] HPI 65-year-old male presenting with multiple complaints He tells me that I just do not feel good today. He tells me that he has a headache, feels lightheaded, has had some intermittent chest pressure, has some left-sided chest wall pain, has some intermittent abdominal pain that got better when he ate a burger. He tells me I think my brother is poisoning me. He tells me that there was "something wet on the doorknob today that he touched He denies any fevers. No current shortness of breath. Medication Reconciliation Allergies: Coded Allergies: Penicillins (Verified Allergy, Unknown, 03/01/25) Sulfa (Sulfonamide Antibiotics) (Verified Allergy, Unknown, 03/01/25) Scheduled Aspirin (Children's Aspirin), 81 MG PO DAILY@0830 Atorvastatin Calcium (Atorvastatin Calcium), 1 TAB PO DAILY, (Reported) Carvedilol (Carvedilol), 1 TAB PO BID Empagliflozin (Jardiance), 1 TAB PO DAILY Ferrous Sulfate (Iron), 1 TAB PO MTTF, (Reported) Glyburide (Glyburide), 1 TAB PO DAILY Sacubitril/Valsartan (Entresto 24 mg-26 mg Tablet), 1 TABLET PO BID Spironolactone (Spironolactone), 0.5 TAB PO DAILY, (Reported) Past Medical History Past Medical History: Congestive Heart Failure, Diverticulitis, GERD Past Surgical History: noncontributory Patient History: Colorectal cancer MOTHER (colon cancer ), , Age: 82 FH: CABG (coronary artery bypass surgery) FATHER (heart disease), , Age: 84 Alcohol Use: Rarely Drug Use: marijuana Lives In: Home Review of Systems Constitutional: Denies: fever Respiratory: Denies: shortness of breath Cardiovascular: Reports: chest pain, lightheadedness Physical Exam Vital Signs: Temperature: 98.7, Source: Temporal, Heart Rate: 95, Respiratory Rate: 21, BP: 79/59, Pulse Oximetry: 95, Weight: 78.100 Oxygen Flow Rate: 0 Physical Exam General: This is a calm middle-aged man sitting in bed wearing sunglasses HEENT: oropharynx appears dry Heart: Regular rate, appears sinus rhythm on the monitor Lungs: Clear breath sounds bilateral, normal work of breathing, normal oxygen saturation on room air Neuro: Alert and oriented Psychiatric: Calm and cooperative with exam Progress Results/Orders Results/Orders Orders - NANCIE LUEVANO MD Chest,Single View (03/01/25 15:12) Monitor (03/01/25 15:12) Saline Lock (03/01/25 15:12) Oxygen (03/01/25 15:12) Completed Orders - NANCIE LUEVANO MD Chest,Single View (03/01/25 15:12) Cbc/Diff (03/01/25 15:12) BMP (03/01/25 15:12) PBNP (03/01/25 15:12) Electrocardiogram (03/01/25 15:12) Hs Troponin I W Calculations (03/01/25 15:12) Hs Troponin I W Calculations (03/01/25 17:12) Normal Saline 1000ml (0.9% Sodium Chlori (03/01/25 16:25) Medications Received in ER Medications (Trade) Dose Ordered Sig/Herman Route PRN Reason Start Time Stop Time Status Last Admin Dose Admin (0.9% sodium chloride (NS) 1000ml IV soln) 1,000 ml ONCE ONCE IVB 03/01/25 16:25 03/01/25 16:26 DC 03/01/25 16:26 1,000 ML Vital Signs 03/01/25 03/01/25 03/01/25 03/01/25 15:07 15:26 15:35 16:20 Temp 98.7 98.7 Pulse 89 95 71 85 86 Resp 16 21 B/P (MAP) 85/58 79/59 (66) 112/65 87/62 77/54 Pulse Ox 97 95 O2 Flow Rate 0 0 03/01/25 03/01/25 16:30 18:09 Temp 98.7 98.7 Pulse 72 76 Resp 10 18 B/P (MAP) 91/63 (72) 110/70 Pulse Ox 99 98 O2 Flow Rate 0 Laboratory Tests Test 03/01/25 15:15 03/01/25 17:22 White Blood Count 9.1 Red Blood Count 4.61 L Hemoglobin 13.6 L Hematocrit 40.1 L Mean Corpuscular Volume 86.9 Mean Corpuscular Hemoglobin 29.6 Mean Corpuscular Hemoglobin Concent 34.1 Red Cell Distribution Width 14.0 Platelet Count 228 Mean Platelet Volume 8.6 Neutrophils (%) (Auto) 60.5 Lymphocytes (%) (Auto) 24.9 Monocytes (%) (Auto) 8.8 Eosinophils (%) (Auto) 4.8 Basophils (%) (Auto) 1.0 Neutrophils # (Auto) 5.5 Lymphocytes # (Auto) 2.3 Monocytes # (Auto) 0.8 Eosinophils # (Auto) 0.4 Basophils # (Auto) 0.1 CBC Comment Sodium Level 139 Potassium Level 5.8 H Chloride Level 104 Carbon Dioxide Level 28.2 Anion Gap 7 L Blood Urea Nitrogen 33 H Creatinine 1.76 H Estimated GFR/1.73 m2 39 BUN/Creatinine Ratio 18.8 Glucose Level 100 Calcium Level 9.4 Troponin I High Sensitivity 17 23 Pro-B-Type Natriuretic Peptide 671 H Albumin 4.4 Chemistry Comments Troponin I High Sens Percent Delta 35 Troponin I Hi Sens Absolute Change 6 EKG/XRAY/CT/US/VASC/MRI EKG : Additional Comment I personally interpreted the EKG and this shows: Sinus rhythm, rate 86, QTC 444, inverted T-waves in the inferior lateral leads Chest X-Ray : Additional Comments I personally interpreted the x-ray, and it shows: No focal consolidation, pulmonary edema, or mediastinal widening Medical Decision Making Additional info obtained from: old records Findings Per chart review, the patient has a poor ejection fraction around 10%, had recent admission for ARABELLA and hypotension Differential Dx:Considerations: Include: chest wall pain, costochondritis, pneumonia, pulmonary embolus Additional Information Differential includes dehydration, electrolyte derangement, medication reaction, GI bleed Assessment Here in the ED, the patient presents with multiple complaints including chest discomfort and dizziness. He is found to have orthostatic hypotension, similar to a previous admission. He was given IV fluids with partial improvement. His lab work does show mild acute kidney injury and hyperkalemia. EKG with no other dangerous findings. After a period of observation, he informed me that he had already called for his ride and was ready to be discharged. I did discuss the possibility for admission for further treatment and to try to get his blood p ressure more stable. He repeatedly declined admission. He will be discharged with instructions for increased hydration at home, and strict return precautions were given. Departure Time of Disposition: 18:01 Disposition: 01 HOME / SELF CARE / HOMELESS Impression: Primary Impression: Orthostatic hypotension Additional Impressions: Hyperkalemia ARABELLA (acute kidney injury) Condition: Improved Discharge Instructions: Dehydration, Adult, Orthostatic Hypotension Referrals: NO PRIMARY CARE PROVIDER (PCP) Education Educated: Patient Educated regarding: diagnosis, treatment, need for follow up Signature Scribe Signature: na Attestation: NANCIE Roque MD Mar 01, 2025 16:05
[2025-03-01] MEDS: normal saline 1000ML IV soln IVB ONE (16:26)
[2025-03-01 18:09] VITALS: BP 110/70; PULSE 76; RESP 18; TEMP 98.7; O2SAT 98
== END 2025-03-01 18:11 | disposition home or self-care (01) ==
LOC: ER 14:56
DX: I95.1 Orthostatic hypotension (principal); E87.5 Hyperkalemia; N17.9 Acute kidney failure, unspecified; I50.9 Heart failure, unspecified; F12.90 Cannabis use, unspecified, uncomplicated; K21.9 Gastro-esophageal reflux disease without esophagitis; Z88.0 Allergy status to penicillin; Z88.2 Allergy status to sulfonamides; Z79.82 Long term (current) use of aspirin; Z79.899 Other long term (current) drug therapy
CPT/HCPCS: 36415; 71045; 80048; 83880; 84484; 85025; 93005; 96360; 99285; J7030